=== PATIENT | female | born 2000 | race African-American/Black ===

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

== ENCOUNTER 2018-02-06 12:30 | Emergency (ER) | payer OTHER ==
[~2018-02-06] VITALS: Ht 157.5 cm; Wt 65.0 kg
[~2018-02-06 12:30] MED LIST changes: +NAPR-810 PO
[2018-02-06 13:05] VITALS: BP 130/77; PULSE 66; RESP 14; TEMP 98.5; O2SAT 100
--- NOTE | 2018-02-06 14:10 | PD ---
HPI Chief Complaint: Related Problem Time Seen by Provider: 14:06 Travel History International Travel<30 days: No Contact w/Intl Traveler<30days: No Traveled to known affect area: No History of Present Illness HPI 17-year-old female , presents emergency department with 3 positive home test. Patient is here requesting another test. She has mild nausea but no pain, bleeding, cramping, fever, or vomiting. Patient's last normal menstrual cycle was the beginning of December. She states she had some spotting last week but none currently. She has no abdominal pain. She is allergic to mushrooms and aripiprazole. PFSH Past Medical History ADHD: Yes Asthma: Yes Cancer: No Cardiovascular Problems: No Diabetes: No Diminished Hearing: No Gastrointestinal Disorders: No Genitourinary: Yes (BEING TREATED FOR URINARY TRACT INFECTION NOW) Musculoskeletal: No Neurologic: No Psychiatric: Yes (ADHD) Respiratory: Yes (asthma) Immunizations Current: Yes Migraines: No Seizures: No Thyroid Disease: No Ulcer: No ?: Unknown LMP: UNKNOWN Menopausal: No : 0 Past Surgical History Appendectomy: No Cholecystectomy: No Other Surgery: No Social History Alcohol Use: No Tobacco Use: No (she reports that she recently quit smoking) Substance Use: Yes (OCCASIONAL MARIJUANA) Allergies-Medications (Allergen,Severity, Reaction): Coded Allergies: aripiprazole (Unverified Allergy, Severe, RASH, 02/06/18) mushroom (Unverified Allergy, Unknown, 02/06/18) Reported Meds & Prescriptions Reported Meds & Active Scripts Active Ventolin Hfa 18 GM Inh (Albuterol Sulfate) 90 Mcg/Act Aer 2 Puff INH Q4-6H PRN EC-Naprosyn (Naproxen) 500 Mg Tabdr 500 Mg PO BID PRN Review of Systems Except as stated in HPI: all other systems reviewed are Neg General / Constitutional: No: Fever Eyes: No: Visual changes HENT: No: Headaches Cardiovascular: No: Chest Pain or Discomfort Respiratory: No: Shortness of Breath Gastrointestinal: Positive: Nausea (Mild), No: Vomiting, Diarrhea, Abdominal Pain Genitourinary: No: Urgency, Frequency, Dysuria, Hematuria, Pelvic Pain, Flank Pain, Discharge, Vaginal Bleeding Musculoskeletal: No: Pain Skin: No Rash Neurologic: No: Weakness Psychiatric: No: Depression Endocrine: No: Polydipsia Hematologic/Lymphatic: No: Easy Bruising Physical Exam Narrative GENERAL: Patient appears in no acute distress per SKIN: Warm and dry. Normal color. Normal turgor. HEAD: Atraumatic. Normocephalic. EYES: Pupils equal and round. No scleral icterus. No injection or drainage. ENT: No nasal bleeding or discharge. Mucous membranes pink and moist. NECK: Trachea midline. No JVD. CARDIOVASCULAR: Regular rate and rhythm. RESPIRATORY: No accessory muscle use. Clear to auscultation. Breath sounds equal bilaterally. GASTROINTESTINAL: Abdomen soft, non-tender, nondistended. Hepatic and splenic margins not palpable. No CVA tenderness. MUSCULOSKELETAL: Extremities without clubbing, cyanosis, or edema. No obvious deformities. NEUROLOGICAL: Awake and alert. No obvious cranial nerve deficits. Motor grossly within normal limits. Five out of 5 muscle strength in the arms and legs. Normal speech. PSYCHIATRIC: Appropriate mood and affect; insight and judgment normal. Data Data Last Documented VS Vital Signs Date Time Temp Pulse Resp B/P (MAP) Pulse Ox O2 Delivery O2 Flow Rate FiO2 02/06/18 13:05 98.5 66 14 130/77 (94) 100 MDM Medical Decision Making Medical Screen Exam Complete: Yes Emergency Medical Condition: No Differential Diagnosis Early . Nausea. Need for OB Narrative Course A medical screening exam was performed: At the time of evaluation the presenting medical condition was determined not to be of an emergent nature. The patient was given the option of receiving additional care, but declined. Patient was given options for additional community resources from which to obtain care. The Patient Has Been advised to seek medical attention for their presenting complaint. The patient has been advised to return to the ER at any time if an emergent condition develops. Condition: Stable Christiano Covarrubias Feb 06, 2018 14:10
== END 2018-02-06 14:13 | disposition left against medical advice (07) ==
LOC: NEPK 12:30
DX: R11.0 Nausea (principal)
CPT/HCPCS: 99281